=== PATIENT | male | born 1945 | race Caucasian/White ===

== ENCOUNTER 2016-06-22 10:07 | Day surgery (SDC) | payer MEDICARE, OTHER ==
[~2016-06-22] VITALS: Ht 175.3 cm; Wt 84.0 kg
[~2016-06-22 10:07] MED LIST: DOXY25TA46 PO; FINA5TAB9 PO; GLIM2TAB2 PO; HYG25 PO; LOSA100T29 PO; MELO-253 PO; MULT-1073 PO; OXYC-466 PO; Sodium Chloride LOK Flush 10 mL Syringe IV PRN; TAMS0.4C98 PO; fentaNYL-PF 50 mCg/mL 2 mL Inj IVPUSH PRN
[2016-06-22 10:46] VITALS: BP 123/70; PULSE 53; RESP 16; O2SAT 97
[2016-06-22] MEDS ORDERED: 0.9% Sodium Chloride 1,000 ML ONE (11:37)
--- NOTE | 2016-06-22 12:21 | PCM.ENDCOL ---
Colonoscopy Date of Service: Jun 22, 2016 Physician Wilder Ndiaye MD Pre Procedure Diagnosis: Screening colon cancer Post Procedure Dx & Findings: Polyp hemorrhoids and diverticula Procedure Colonoscopy Prep adequate Withdrawal 14 minutes PROCEDURE IN DETAIL: After unremarkable rectal examination Olympus video colonoscope was inserted into patient's anal canal insurance to cecum. Landmarks were identified including the ileocecal valve and appendiceal orifice. Scope was withdrawn systematically. The mucosa of the cecum, ascending, transverse, descending, sigmoid, rectal mucosa lined with whitish, pink, smooth, glistening, normal-appearing mucosa, normal fine branching, underlying vascularity, normal haustra. The patient tolerated procedure and was transported to observation area. In the ascending colon there was a 1 mm polyp which was resected completely using cold forceps. In the rectum there was a 1 mm polyp which was resected completely using cold forceps. In the sigmoid colon there a few small diverticuli. In the rectum retroflexion was done which showed hemorrhoids and canal was inspected carefully and the way out. Hemorrhoids noted. Impression Polyps 2 status post complete removal Hemorrhoids Diverticuli Recommendation Repeat colonoscopy 5 years Diverticular diet Presedation Assessment Risks and Benefits Informed consent was obtained from the patient after all risks and benefits including but not limited to drug reaction, infection, pain, bleeding, perforation, as well as alternatives were discussed. Patient monitoring Continuous pulse oximetry, cardiac monitoring, blood pressure monitoring, IV access, and oxygen at 2L per nasal cannula. Periprocedural Fentanyl: Fentanyl 100mcg Incrementally Midazolam: Midazolam 5mg Incrementally Complications There were no periprocedural complications identified. Post Procedure Plan Post Procedure Recommendations 1. Restrict activities today. 2. Resume normal activities in the morning. 3. Resume medications. 4. Patient informed of normal post procedure side effects as bloating, drowsiness, blood streaking in the stool. 5. average risk CRCS. If colon polyps come back as: -Hyperplastic- can repeat colonoscopy in 10 years -Tubular adenoma- repeat colonoscopy in 5 years -Tubulovillous/villous adenoma- repeat colonoscopy in 3 years -If any dysplasia- return to clinic as soon as possible 6. Please don't hesitate to call me with any questions. Wilder Ndiaye MD Jun 22, 2016 12:21
[2016-06-22 12:23] VITALS: BP 109/69; PULSE 58; RESP 14; O2SAT 93
[2016-06-22 12:33] VITALS: BP 103/68; PULSE 55; RESP 12; O2SAT 97
[2016-06-22 12:37] VITALS: BP 122/69; PULSE 64; RESP 14; O2SAT 95
--- NOTE | 2016-06-26 10:08 | PATH ---
SURGICAL PATHOLOGY Attending Physician:Wilder Ndiaye M.D. CASE STATUS: Signed Out PATIENT NAME: HERBERT CONTI PID: [id number] : 1945 DATE COLLECTED:06/22/2016 20:16 SPECIMEN: 1: Colon, Biopsy 2: Rectum, Biopsy CLINICAL HISTORY: 1). ASCENDING COLON POLYP X1 2). RECTAL POLYP X1 FINAL DIAGNOSIS: 1.ASCENDING COLON POLYP: TUBULAR ADENOMA. 2.RECTAL POLYP: TUBULAR ADENOMA. ICD10 CODE D12.2 GROSS DESCRIPTION: The specimen is received in two formalin filled containers labeled with the patient's name. 1). The specimen is sublabeled "ascending colon polyp x1" and consists of a 0.3 x 0.3 x 0.2 CM portion of tissue which is entirely submitted in cassette 1A. 2). The specimen is sublabeled "rectal polyp x1" and consists of a 0.3 x 0.2 x 0.2 CM portion of tissue which is entirely submitted in cassette 2A. 06/22/2016 DAC MICRO DESCRIPTION: See diagnosis. ICD-9 CODES: CPT CODES: 1: 10146 2: 55554 Electronically Signed Out Norberto Garcia MD [facility] [address], [place] [address] Technical component performed at [facility], [facility] [address], [address]
== END 2016-06-22 23:59 | disposition home or self-care (01) ==
LOC: END 10:07
PROVIDERS: ATTEND Internal Medicine
DX: D12.2 Benign neoplasm of ascending colon (principal); D12.8 Benign neoplasm of rectum; K57.30 Diverticulosis of large intestine without perforation or abscess without bleeding; K64.9 Unspecified hemorrhoids; K59.09 Other constipation; E11.9 Type 2 diabetes mellitus without complications; I10 Essential (primary) hypertension; M54.9 Dorsalgia, unspecified; Z79.891 Long term (current) use of opiate analgesic
CPT/HCPCS: 45380; 88305; 99153; G0500; J2250; J3010; J7030